=== PATIENT | male | born 1965 | race Caucasian/White ===

== ENCOUNTER 2019-01-27 13:16 | Emergency (ER) | payer SELFPAY ==
[~2019-01-27] VITALS: Ht 180.3 cm; Wt 100.0 kg
[~2019-01-27 13:16] MED LIST: BENADRYL 50MG C50 MG PO; CEPHALEXIN500 MG OR; FLOMAX0.4 M1 PO; LORTAB 10-325 M1 TAB PO; LORTAB 1010 MG PO; LORTAB 5-325 MG1 TAB PO; LORTAB 7.5 OR; LORTAB5 PO; MOTRIN400 MG OR; NO MEDS; ONDANSETRON4 MG PO; PROMETHAZINE25 M1 PO; VICODIN ES1 TA1 PO; VICOPROFEN PO; ZOFRAN ODT4 MG SL; ZOFRAN ODT8 MG PO
[2019-01-27] MEDS ORDERED: MOTRIN400 MG PO (13:28)
[2019-01-27] MEDS ORDERED: CYCLOBENZAPR5 MG PO (13:28)
[2019-01-27 13:40] VITALS: BP 130/86
== END 2019-01-27 13:40 | disposition home or self-care (01) | DRG 552 ==
LOC: ED 13:16
DX: M62.830 Muscle spasm of back (principal)

== ENCOUNTER 2020-10-10 12:41 | Emergency (ER) | payer SELFPAY ==
[~2020-10-10] VITALS: Ht 180.3 cm; Wt 112.0 kg
[~2020-10-10 12:41] MED LIST changes: +CYCLOBENZAPR5 MG PO; +MOTRIN400 MG PO
[2020-10-10] MEDS ORDERED: MEDDOSEPAK PO (14:22)
[2020-10-10] MEDS ORDERED: TRAMADOL HYDROC50 M1 PO (14:22)
[2020-10-10] MEDS ORDERED: NAPROXEN375 MG PO (14:22)
[2020-10-10] MEDS ORDERED: GABAPENTIN300 M2 (14:24)
[2020-10-10] MEDS ORDERED: CYCLOBENZAPRINE10 MG PO (14:25)
[2020-10-10 14:41] VITALS: BP 131/81
== END 2020-10-10 14:41 | disposition home or self-care (01) | DRG 552 ==
LOC: ED 12:41
DX: M54.5 Low back pain (principal); M25.562 Pain in left knee; B19.20 Unspecified viral hepatitis C without hepatic coma

== ENCOUNTER 2020-10-15 12:08 | Emergency (ER) | payer SELFPAY ==
[~2020-10-15 12:08] MED LIST changes: +CYCLOBENZAPRINE10 MG PO; +GABAPENTIN300 M2; +MEDDOSEPAK PO; +NAPROXEN375 MG PO; +TRAMADOL HYDROC50 M1 PO
== END 2020-10-15 12:30 | disposition left against medical advice (07) | DRG 951 ==
LOC: ED 12:08 → LWOBS 12:30
DX: Z53.21 Procedure and treatment not carried out due to patient leaving prior to being seen by health care provider (principal)

== ENCOUNTER 2021-03-16 05:48 | Emergency (ER) | payer BC ==
[~2021-03-16] VITALS: Ht 180.3 cm; Wt 109.0 kg
[2021-03-16 06:27] LABS: URINE BILIRUBIN - DIPSTICK NEGATIVE (NEGATIVE); URINE BLOOD DIPSTICK NEGATIVE (NEGATIVE); URINE COLOR YELLOW; URINE GLUCOSE - DIPSTICK NEGATIVE (NEGATIVE); URINE KETONE NEGATIVE (NEGATIVE); URINE LEUK ESTERASE NEGATIVE (NEGATIVE); URINE PH 6.5 (4.5-8.0); URINE PROTEIN - DIPSTICK NEGATIVE (NEG-TRACE); URINE UROBILINOGEN - DIPSTICK 0.2 E.U./dL (0.2)
[2021-03-16 06:29] LABS: URINE NITRITE - DIPSTICK NEGATIVE (Negative)
[2021-03-16 06:32] LABS: HEMATOCRIT 46.1 % (39.0-50.0); HEMOGLOBIN 15.4 g/dl (14.0-18.0); IMMATURE GRANULOCYTES 0.4 % (0.0-5.0); MEAN CELL VOLUME 88.8 fL CALC (80.0-100.0); MEAN CORPUSCULAR HGB 29.7 pG CALC (26.0-32.0); MEAN CORPUSCULAR HGB CONC 33.4 g/dL CAL (32.0-36.0); NEUT# 4.01 thou/uL (1.82-7.42); RED BLOOD COUNT 5.19 mill/uL (4.70-6.10); RED CELL DISTRI WIDTH 12.8 % (11.5-15.5)
[2021-03-16 06:40] LABS: ALBUMIN 4.1 g/dL (3.2-5.0); ALKALINE PHOSPHATASE 72 u/l (38-126); AMYLASE 51 u/l (30-110); ANION GAP 12 (6-22 (CALC)); BILIRUBIN, TOTAL 0.5 mg/dL (0.0-1.4); BUN 15 mg/dL (9-20); BUN/CREATININE RATIO 17 (12-20 (CALC)); CARBON DIOXIDE 25 mmol/l (22-30); CHLORIDE 102 mmol/l (95-108); CREATININE 0.9 mg/dL (0.7-1.3); GFR > 60 ML/MIN (>=60 (CALC)); GFR FOR AFR.AMER. > 60 ML/MIN (>=60 (CALC)); LIPASE 183 u/l (23-300); POTASSIUM 4.2 mmol/l (3.5-5.1); SGOT/AST 26 u/l (17-59); SODIUM 135 mmol/l (137-146)
[2021-03-16] MEDS ORDERED: CYCLOBENZAPRINE10 MG PO (08:18)
[2021-03-16] MEDS ORDERED: ULTRAM50 M1 PO (08:18)
[2021-03-16 08:35] VITALS: BP 141/83
== END 2021-03-16 08:35 | disposition home or self-care (01) | DRG 552 ==
LOC: ED 05:48
PROVIDERS: Emergency Medicine
DX: M54.5 Low back pain (principal); Z87.442 Personal history of urinary calculi
CPT/HCPCS: Q9967

== ENCOUNTER 2021-09-20 03:45 | Emergency (ER) | payer BC ==
[~2021-09-20] VITALS: Ht 177.8 cm; Wt 109.0 kg
[~2021-09-20 03:45] MED LIST changes: +ULTRAM50 M1 PO
[2021-09-20 04:24] LABS: HEMATOCRIT 43.7 % (39.0-50.0); HEMOGLOBIN 14.4 g/dl (14.0-18.0); IMMATURE GRANULOCYTES 0.5 % (0.0-5.0); MEAN CELL VOLUME 89.2 fL CALC (80.0-100.0); MEAN CORPUSCULAR HGB 29.4 pG CALC (26.0-32.0); NEUT# 4.32 thou/uL (1.82-7.42); RED BLOOD COUNT 4.9 mill/uL (4.70-6.10); RED CELL DISTRI WIDTH 13.2 % (11.5-15.5)
[2021-09-20 04:39] LABS: ALBUMIN 3.8 g/dL (3.2-5.0); ALKALINE PHOSPHATASE 87 u/l (38-126); ANION GAP 12 (6-22 (CALC)); BILIRUBIN, TOTAL 0.5 mg/dL (0.0-1.4); BUN 11 mg/dL (9-20); BUN/CREATININE RATIO 10 (12-20 (CALC)); CARBON DIOXIDE 25 mmol/l (22-30); CHLORIDE 107 mmol/l (95-108); GFR > 60 ML/MIN (>=60 (CALC)); GFR FOR AFR.AMER. > 60 ML/MIN (>=60 (CALC)); POTASSIUM 4.3 mmol/l (3.5-5.1); SGOT/AST 22 u/l (17-59); SODIUM 139 mmol/l (137-146); TOTAL PROTEIN 7.3 g/dL (6.3-8.2)
[2021-09-20] MEDS ORDERED: STERAPRED DS10 MG PO (05:52)
[2021-09-20] MEDS ORDERED: TRAMADOL HCL50 MG PO (05:52)
[2021-09-20 06:00] VITALS: BP 182/88
== END 2021-09-20 06:00 | disposition home or self-care (01) | DRG 552 ==
LOC: ED 03:45
PROVIDERS: Family Medicine
DX: M54.81 Occipital neuralgia (principal); B19.20 Unspecified viral hepatitis C without hepatic coma; Z86.16 Personal history of COVID-19

== ENCOUNTER 2021-11-14 23:21 | Emergency (ER) | payer SELFPAY ==
[~2021-11-14] VITALS: Ht 177.8 cm; Wt 109.0 kg
[~2021-11-14 23:21] MED LIST changes: +STERAPRED DS10 MG PO; +TRAMADOL HCL50 MG PO
[2021-11-14 23:57] LABS: HEMATOCRIT 45.1 % (39.0-50.0); HEMOGLOBIN 14.8 g/dl (14.0-18.0); IMMATURE GRANULOCYTES 0.1 % (0.0-5.0); MEAN CELL VOLUME 90.7 fL CALC (80.0-100.0); MEAN CORPUSCULAR HGB 29.8 pG CALC (26.0-32.0); MEAN CORPUSCULAR HGB CONC 32.8 g/dL CAL (32.0-36.0); NEUT# 4.04 thou/uL (1.82-7.42); RED BLOOD COUNT 4.97 mill/uL (4.70-6.10); RED CELL DISTRI WIDTH 13.7 % (11.5-15.5)
[2021-11-15 00:19] LABS: ALBUMIN 4.4 g/dL (3.2-5.0); ALKALINE PHOSPHATASE 73 u/l (38-126); AMYLASE 75 u/l (30-110); ANION GAP 12 (6-22 (CALC)); BILIRUBIN, TOTAL 0.3 mg/dL (0.0-1.4); BUN 13 mg/dL (9-20); BUN/CREATININE RATIO 10 (12-20 (CALC)); CARBON DIOXIDE 30 mmol/l (22-30); CHLORIDE 103 mmol/l (95-108); CREATININE 1.2 mg/dL (0.7-1.3); GFR > 60 ML/MIN (>=60 (CALC)); GFR FOR AFR.AMER. > 60 ML/MIN (>=60 (CALC)); LIPASE 152 u/l (23-300); POTASSIUM 3.8 mmol/l (3.5-5.1); SGOT/AST 30 u/l (17-59); SODIUM 141 mmol/l (137-146); TOTAL PROTEIN 7.6 g/dL (6.3-8.2)
[2021-11-15] MEDS ORDERED: MOTRIN800 MG PO (01:22)
[2021-11-15] MEDS ORDERED: LORTAB5 PO (01:22)
[2021-11-15] MEDS ORDERED: TAMSULOSIN0.4 MG PO (01:22)
[2021-11-15 02:58] VITALS: BP 173/93
== END 2021-11-15 03:05 | disposition home or self-care (01) | DRG 694 ==
LOC: ED 23:21
PROVIDERS: Family Medicine
DX: N20.1 Calculus of ureter (principal); B19.20 Unspecified viral hepatitis C without hepatic coma; Z87.442 Personal history of urinary calculi; Z86.16 Personal history of COVID-19

== ENCOUNTER 2021-12-05 14:53 | Emergency (ER) | payer SELFPAY ==
[2021-12-05] VITALS (7 sets, daily range): BP systolic 135–152; BP diastolic 88–94
[~2021-12-05] VITALS: Ht 177.8 cm; Wt 105.0 kg
[~2021-12-05 14:53] MED LIST changes: +MOTRIN800 MG PO; +TAMSULOSIN0.4 MG PO
[2021-12-05 15:46] LABS: HEMATOCRIT 45.8 % (39.0-50.0); HEMOGLOBIN 15.1 g/dl (14.0-18.0); IMMATURE GRANULOCYTES 0.4 % (0.0-5.0); MEAN CELL VOLUME 90.3 fL CALC (80.0-100.0); MEAN CORPUSCULAR HGB 29.8 pG CALC (26.0-32.0); NEUT# 5.34 thou/uL (1.82-7.42); RED BLOOD COUNT 5.07 mill/uL (4.70-6.10); RED CELL DISTRI WIDTH 13.6 % (11.5-15.5)
[2021-12-05 16:05] LABS: ALBUMIN 4.1 g/dL (3.2-5.0); ALKALINE PHOSPHATASE 84 u/l (38-126); ANION GAP 13 (6-22 (CALC)); BILIRUBIN, TOTAL 0.3 mg/dL (0.0-1.4); BUN 13 mg/dL (9-20); BUN/CREATININE RATIO 16 (12-20 (CALC)); CARBON DIOXIDE 27 mmol/l (22-30); CHLORIDE 104 mmol/l (95-108); CREATININE 0.8 mg/dL (0.7-1.3); GFR > 60 ML/MIN (>=60 (CALC)); GFR FOR AFR.AMER. > 60 ML/MIN (>=60 (CALC)); POTASSIUM 3.7 mmol/l (3.5-5.1); SGOT/AST 25 u/l (17-59); SODIUM 140 mmol/l (137-146); TOTAL PROTEIN 7.2 g/dL (6.3-8.2)
[2021-12-05 16:57] LABS: URINE BILIRUBIN - DIPSTICK NEGATIVE (NEGATIVE); URINE BLOOD DIPSTICK TRACE-INTACT (NEGATIVE); URINE COLOR YELLOW; URINE GLUCOSE - DIPSTICK NEGATIVE (NEGATIVE); URINE KETONE NEGATIVE (NEGATIVE); URINE LEUK ESTERASE NEGATIVE (NEGATIVE); URINE PH 6.5 (4.5-8.0); URINE PROTEIN - DIPSTICK NEGATIVE (NEG-TRACE); URINE SPECIFIC GRAVITY 1.025; URINE UROBILINOGEN - DIPSTICK 0.2 E.U./dL (0.2)
[2021-12-05 17:00] LABS: URINE NITRITE - DIPSTICK NEGATIVE (Negative)
[2021-12-05] MEDS ORDERED: TAMSULOSIN0.4 MG PO (17:12)
== END 2021-12-05 17:30 | disposition home or self-care (01) | DRG 696 ==
LOC: ED 14:53
PROVIDERS: Family Medicine
DX: R35.0 Frequency of micturition (principal); B19.20 Unspecified viral hepatitis C without hepatic coma; Z87.442 Personal history of urinary calculi; Z86.16 Personal history of COVID-19

== ENCOUNTER 2023-05-03 08:10 | Emergency (ER) | payer SELFPAY ==
[~2023-05-03] VITALS: Ht 177.8 cm; Wt 108.8 kg
[2023-05-03 08:29] VITALS: BP 157/97
[2023-05-03 08:45] VITALS: BP 162/96
[2023-05-03 09:21] LABS: BASO% 0.5 % (0-3); EOS% 2.3 % (0-8); HEMATOCRIT 45.6 % (39.0-50.0); HEMOGLOBIN 15.4 g/dl (14.0-18.0); IMMATURE GRANULOCYTES 0.1 % (0.0-5.0); LYMPH% 23.9 % (15-41); MEAN CELL VOLUME 91.9 fL CALC (80.0-100.0); MEAN CORPUSCULAR HGB CONC 33.8 g/dL CAL (32.0-36.0); MONO% 7.9 % (2-13); NEUT# 5.19 thou/uL (1.82-7.42); NEUT% 65.3 % (42-76); RED BLOOD COUNT 4.96 mill/uL (4.70-6.10); RED CELL DISTRI WIDTH 13.6 % (11.5-15.5)
[2023-05-03 09:33] LABS: ALBUMIN 4.3 g/dL (3.2-5.0); ALKALINE PHOSPHATASE 69 u/l (38-126); ANION GAP 13 (6-22 (CALC)); BUN 15 mg/dL (9-20); BUN/CREATININE RATIO 13 (12-20 (CALC)); CARBON DIOXIDE 25 mmol/l (22-30); CHLORIDE 102 mmol/l (95-108); CREATININE 1.1 mg/dL (0.7-1.3); GFR FOR AFR.AMER. > 60 ML/MIN (>=60 (CALC)); GFR OTHER RACES > 60 ML/MIN (>=60 (CALC)); POTASSIUM 3.8 mmol/l (3.5-5.1); SGOT/AST 40 u/l (17-59); SODIUM 136 mmol/l (137-146); TOTAL PROTEIN 7.8 g/dL (6.3-8.2)
[2023-05-03 09:45] VITALS: BP 158/113
[2023-05-03 09:49] VITALS: BP 171/104
[2023-05-03 10:10] VITALS: BP 171/104
[2023-05-03 10:56] LABS: URINE BILIRUBIN - DIPSTICK Negative (NEGATIVE); URINE BLOOD DIPSTICK Negative (NEGATIVE); URINE COLOR Yellow; URINE GLUCOSE - DIPSTICK Negative (NEGATIVE); URINE KETONE Negative (NEGATIVE); URINE LEUK ESTERASE Negative (NEGATIVE); URINE NITRITE - DIPSTICK Negative (Negative); URINE PH 6.5 (4.5-8.0); URINE PROTEIN - DIPSTICK Negative (NEG-TRACE); URINE SPECIFIC GRAVITY 1.015; URINE UROBILINOGEN - DIPSTICK 0.2 E.U./dL (0.2)
== END 2023-05-03 10:10 | disposition left against medical advice (07) | DRG 694 ==
LOC: ED 08:10
PROVIDERS: Family Medicine
DX: N20.0 Calculus of kidney (principal); B19.20 Unspecified viral hepatitis C without hepatic coma; Z86.16 Personal history of COVID-19

== ENCOUNTER 2023-05-18 19:15 | Emergency (ER) | payer OTHER ==
[2023-05-18] VITALS (11 sets, daily range): BP systolic 124–171; BP diastolic 83–120
[~2023-05-18] VITALS: Ht 180.3 cm; Wt 108.0 kg
[2023-05-18 19:54] LABS: BASO% 0.6 % (0-3); EOS% 2.1 % (0-8); HEMATOCRIT 47.6 % (39.0-50.0); HEMOGLOBIN 16.1 g/dl (14.0-18.0); IMMATURE GRANULOCYTES 0.3 % (0.0-5.0); LYMPH% 23.9 % (15-41); MEAN CELL VOLUME 90.8 fL CALC (80.0-100.0); MEAN CORPUSCULAR HGB 30.7 pG CALC (26.0-32.0); MEAN CORPUSCULAR HGB CONC 33.8 g/dL CAL (32.0-36.0); MONO% 8.3 % (2-13); NEUT# 5.67 thou/uL (1.82-7.42); NEUT% 64.8 % (42-76); RED BLOOD COUNT 5.24 mill/uL (4.70-6.10); RED CELL DISTRI WIDTH 13.4 % (11.5-15.5)
[2023-05-18 20:02] LABS: ALBUMIN 4.6 g/dL (3.2-5.0); ALKALINE PHOSPHATASE 88 u/l (38-126); ANION GAP 14 (6-22 (CALC)); BILIRUBIN, TOTAL 0.8 mg/dL (0.2-1.3); BUN 16 mg/dL (9-20); BUN/CREATININE RATIO 14 (12-20 (CALC)); CARBON DIOXIDE 24 mmol/l (22-30); CHLORIDE 104 mmol/l (95-108); CPK 116 u/l (55-170); CREATININE 1.2 mg/dL (0.7-1.3); GFR FOR AFR.AMER. > 60 ML/MIN (>=60 (CALC)); GFR OTHER RACES > 60 ML/MIN (>=60 (CALC)); POTASSIUM 4.2 mmol/l (3.5-5.1); SGOT/AST 41 u/l (17-59); SODIUM 138 mmol/l (137-146); TOTAL PROTEIN 7.9 g/dL (6.3-8.2)
[2023-05-18] MEDS ORDERED: VOLTAREN - GENE75 MG PO ×2 (22:42→22:44)
[2023-05-18] MEDS ORDERED: LISINOP/HCTZ1 TA2 PO ×2 (22:42→22:44)
[2023-05-18] MEDS ORDERED: TRAMADOL HCL50 MG PO ×2 (22:42→22:44)
== END 2023-05-18 23:15 | disposition home or self-care (01) | DRG 605 ==
LOC: ED 19:15
PROVIDERS: Family Medicine
DX: S30.0XXA Contusion of lower back and pelvis, initial encounter (principal); S20.229A Contusion of unspecified back wall of thorax, initial encounter; R07.89 Other chest pain; I10 Essential (primary) hypertension; B19.20 Unspecified viral hepatitis C without hepatic coma; V43.52XA Car driver injured in collision with other type car in traffic accident, initial encounter; Z86.16 Personal history of COVID-19
CPT/HCPCS: Q9967

== ENCOUNTER 2023-09-16 15:42 | Emergency (ER) | payer SELFPAY ==
[~2023-09-16] VITALS: Ht 180.3 cm; Wt 103.3 kg
[2023-09-16] VITALS (7 sets, daily range): BP systolic 126–149; BP diastolic 88–99
[~2023-09-16 15:42] MED LIST changes: +LISINOP/HCTZ1 TA2 PO; +VOLTAREN - GENE75 MG PO
[2023-09-16 18:43] LABS: BASO% 0.4 % (0-3); EOS% 2.5 % (0-8); HEMATOCRIT 50.1 % (39.0-50.0); HEMOGLOBIN 16.8 g/dl (14.0-18.0); IMMATURE GRANULOCYTES 0.3 % (0.0-5.0); LYMPH% 30.5 % (15-41); MEAN CELL VOLUME 91.3 fL CALC (80.0-100.0); MEAN CORPUSCULAR HGB 30.6 pG CALC (26.0-32.0); MEAN CORPUSCULAR HGB CONC 33.5 g/dL CAL (32.0-36.0); MONO% 9.1 % (2-13); NEUT# 4.38 thou/uL (1.82-7.42); NEUT% 57.2 % (42-76); RED BLOOD COUNT 5.49 mill/uL (4.70-6.10); RED CELL DISTRI WIDTH 13.1 % (11.5-15.5)
[2023-09-16 19:00] LABS: ALBUMIN 4.7 g/dL (3.2-5.0); ALKALINE PHOSPHATASE 74 u/l (38-126); ANION GAP 19 (6-22 (CALC)); BILIRUBIN, TOTAL 0.7 mg/dL (0.2-1.3); BUN 17 mg/dL (9-20); BUN/CREATININE RATIO 15 (12-20 (CALC)); CARBON DIOXIDE 21 mmol/l (22-30); CHLORIDE 105 mmol/l (95-108); CREATININE 1.2 mg/dL (0.7-1.3); GFR FOR AFR.AMER. > 60 ML/MIN (>=60 (CALC)); GFR OTHER RACES > 60 ML/MIN (>=60 (CALC)); LIPASE 124 u/l (23-300); POTASSIUM 4.6 mmol/l (3.5-5.1); SGOT/AST 33 u/l (17-59); SODIUM 139 mmol/l (137-146); TOTAL PROTEIN 7.9 g/dL (6.3-8.2)
[2023-09-16] MEDS ORDERED: VIBRAMYCIN100 M2 PO (20:24)
[2023-09-16] MEDS ORDERED: PROAIR HFA IN (20:24)
[2023-09-16] MEDS ORDERED: PREDNISONE20 MG PO (20:24)
[2023-09-16] MEDS ORDERED: ZYRTEC10 MG PO (20:24)
== END 2023-09-16 21:15 | disposition home or self-care (01) | DRG 203 ==
LOC: ED 15:42
PROVIDERS: Nurse Practitioner
DX: J45.909 Unspecified asthma, uncomplicated (principal); B19.20 Unspecified viral hepatitis C without hepatic coma; Z86.16 Personal history of COVID-19; Z20.822 Contact with and (suspected) exposure to COVID-19